=== PATIENT | female | born 1955 | race Caucasian/White ===

== ENCOUNTER → 2022-08-04 11:29 | Outpatient (BNVA) | payer MEDICARE, SELFPAY | PROVIDERS: PCP Nurse Practitioner Family; Visit Provider Student in an Organized Health Care Education/Training Program | DX: M05.79 Rheumatoid arthritis with rheumatoid factor of multiple sites without organ or systems involvement (principal) | CPT/HCPCS: 99202 ==

== ENCOUNTER 2022-08-25 11:48 | Outpatient (REF) | payer MEDICARE, SELFPAY | END 2022-08-25 11:49 | disposition home or self-care (01) | LOC: HO.MDS 11:48 | PROVIDERS: PCP Nurse Practitioner Family; Visit Provider Student in an Organized Health Care Education/Training Program | DX: M06.9 Rheumatoid arthritis, unspecified (principal) | CPT/HCPCS: 96365; J1602 ==

== ENCOUNTER 2022-10-25 14:31 | Outpatient (REF) | payer MEDICARE, SELFPAY | END 2022-10-25 14:32 | disposition home or self-care (01) | LOC: HO.MDS 14:31 | PROVIDERS: Visit Provider Student in an Organized Health Care Education/Training Program | DX: M06.9 Rheumatoid arthritis, unspecified (principal) | CPT/HCPCS: 96365; J1602 ==

== ENCOUNTER → 2022-11-30 10:16 | Outpatient (BNVA) | payer MEDICARE, SELFPAY | PROVIDERS: PCP Nurse Practitioner Family; Visit Provider Student in an Organized Health Care Education/Training Program | DX: M05.79 Rheumatoid arthritis with rheumatoid factor of multiple sites without organ or systems involvement (principal); R21 Rash and other nonspecific skin eruption | CPT/HCPCS: 99212 ==

== ENCOUNTER 2022-12-21 11:58 | Outpatient (REF) | payer MEDICARE, SELFPAY | END 2022-12-21 11:59 | disposition home or self-care (01) | LOC: HO.MDS 11:58 | PROVIDERS: Visit Provider Student in an Organized Health Care Education/Training Program | DX: M06.9 Rheumatoid arthritis, unspecified (principal) | CPT/HCPCS: 96365; J1602 ==

== ENCOUNTER 2023-02-15 12:04 | Outpatient (REF) | payer MEDICARE, SELFPAY | END 2023-02-15 12:05 | disposition home or self-care (01) | LOC: HO.MDS 12:04 | PROVIDERS: Visit Provider Student in an Organized Health Care Education/Training Program | DX: M06.9 Rheumatoid arthritis, unspecified (principal) | CPT/HCPCS: 96365; J1602 ==

== ENCOUNTER 2023-03-08 12:02 | Outpatient (AMB) | payer MEDICARE, SELFPAY ==
[2023-03-08 12:12] VITALS: BP 156/94; PULSE 109; RESP 16; TEMP 36; O2SAT 97; BMI 28.3
--- NOTE | 2023-03-08 12:12 | MHC.OFFVIS ---
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: No Allergies Penicillins Allergy (Intermediate, Verified 03/08/23 12:15) Rash atorvastatin Adverse Reaction (Intermediate, Verified 03/08/23 12:15) Muscle Pain Medication List - Last Reconciled 03/08/23 by Cha Lamas MD cholecalciferol (vitamin D3) 50 mcg PO DAILY golimumab (Simponi ARIA) 150 mg (12 mL) IV Q8W [id number]-ast [id number] mg 1 cap PO BID prednisone Take 3 tabs by mouth once daily with breakfast for 1 week then 2 tabs daily for 1 week then 1 tab daily for 1 week then stop triamcinolone acetonide 0.1% 1 appl topical BID HPI HPI Comments History of Present Illness Details 67-year-old female with seropositive RA returns for follow-up. She states that she feels a little worse overall. She continues on Simponi infusions every 8 weeks. She did not start the methotrexate as instructed last visit as she wanted to see how she would do with the infusions. States that she gets pain in her wrists, ankles. Occasionally her shoulders. Her next infusion is due in 1 month. 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 She only works 3 days a week but she is on her feet the majority of the day. Rash on back and abdomen resolved with triamcinolone cream. Initial history: 66-year-old female with past medical history of hypertension, dyslipidemia, depression who presents for evaluation of rheumatoid arthritis. She was diagnosed with seropositive RA (++RF ++CCP) by Dr. Morales in 2007. She has failed hydroxychloroquine, methotrexate, leflunomide, sulfasalazine. She was intermittently on steroids which seemed to work. She was on Humira since 2016 which worked very well however her insurance would not cover it so she was spacing out her injections to every 4 weeks instead of 2 weeks for about 1 year until she ran out. Patient saw curb builder Dr. West last year and was started on Simponi Aria Q 8 weeks about 6 months ago. She stated that Simponi Aria initially only works for 5-7 week. Her most recent infusion was June 29. She states however that this infusion seems to have worked well. She only has mild middle finger stiffness. Denies any swollen joints. She feels well today from an MSK stand point. Patient states she has had cough with chest congestion for a few years now. She occasionally has a productive cough with whitish phlegm. Denies any shortness of breath. She can walk on level ground for miles. She has 2 flights of stairs at home and she is able to do them with minimal shortness of breath. Denies any history of Raynaud's. No history of GERD [facility] Medical History Adjustment disorder with mixed emotional features Allergic rhinitis Benign essential hypertension Depression Mixed hyperlipidemia Obesity Ocular hypertension Rheumatoid arthritis Surgical History Hx of cataract extraction Family History Mother Glaucoma Pacemaker Sister Sjogrens syndrome Father Prostate cancer Social History Household Members: None Alcohol intake: current Alcohol intake frequency: holidays/special occasions only Patient Tobacco Use Status: Former Tobacco user Quit Date: 1996 Current occupational status: employed 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 Review of Systems [facility] [place] Reports arthralgias Skin/Breast Denies rash Physical Exam Vital Signs: Last Vital Signs Temp 96.8 F 03/08/23 12:12 Pulse 109 H 03/08/23 12:12 Resp 16 03/08/23 12:12 BP 156/94 H 03/08/23 12:12 Pulse Ox 97 03/08/23 12:12 Oxygen Delivery Method Room Air 03/08/23 12:12 BMI result Body Mass Index 28.3 Const General: cooperative, healthy appearing, comfortable and no acute distress Nutritional Appearance: average body habitus Orientation/consciousness: patient oriented x3 Limitations: no limitations HEENT Head: Yes normocephalic and Yes atraumatic Mouth: moist mucous membranes Resp Effort & Inspection: normal respiratory effort and able to speak in complete sentences Skin General skin exam: no rashes or lesions noted Neuro General: patient oriented x3 Extrem Other: Mild right wrist swelling and pain with full flexion and extension Left wrist pain with full flexion and extension Bilateral shoulder pain with passive range of motion Negative rotator cuff provocative maneuvers bilaterally Mild osteoarthritic changes of both hands Mild Dupuytren contracture of left hand Left ankle warmth without tenderness Negative MTP tenderness, negative MTP squeeze test Normal nailfold capillaroscopy Results Reviewed Results Reviewed: Labs from 05/2022 cbc nl esr 37 CMP nl crp nl Labs from 19/07 ssa/ssb -ve ccp +ve RF+ Assessment & Plan Assessment & Plan (1) Rheumatoid arthritis: Comment: ++RF++CCP diagnosed in 2007 Failed H CQ, MTX, SSZ, leflunomide Humira was working well from 2015 to 2020, stopped due to lack of insurance Simponi Aria started 2021, effective Code(s): M06.9 - Rheumatoid arthritis, unspecified Qualifiers: Rheumatoid arthritis location: multiple sites Rheumatoid factor presence: with rheumatoid factor Qualified Code(s): M05.79 - Rheumatoid arthritis with rheumatoid factor of multiple sites without organ or systems involvement Plan: This is a 67 year old female with seropositive RA (++RF++CCP) who presents for follow-up. On Simponi Aria infusions 2 mg/kg every 8 weeks. On exam today patient has few swollen and tender joints. ESR remains elevated. Will check anti Golimumab antibodies. If antibodies are positive will switch golimumab to another infusion. If negative will consider adding a Cs DMARD such as methotrexate. Prednisone taper for relief Labs before next visit in 3 months (2) Rash and nonspecific skin eruption: Code(s): R21 - Rash and other nonspecific skin eruption Plan: Unclear cause. Resolved with triamcinolone cream Plan I spent 26 minutes reviewing patient's chart, evaluating patient, ordering diagnostic workup, counseling patient and documenting in the chart Orders: Orders Comprehensive Met. Panel 3 Months M06.9 - Rheumatoid arthritis, unspecified C Reactive Protein 3 Months M06.9 - Rheumatoid arthritis, unspecified Complete Blood Count Auto Diff 3 Months M06.9 - Rheumatoid arthritis, unspecified Erythrocyte Sedimentation Rate 3 Months M06.9 - Rheumatoid arthritis, unspecified Other Ref Test [place] [facility] [place] Z51.81 - Encounter for therapeutic drug level monitoring, Z79.899 - Other long term care pharmacist (current) drug therapy Medications: New prednisone Take 3 tabs by mouth once daily with breakfast for 1 week then 2 tabs daily for 1 week then 1 tab daily for 1 week then stop 42 tabs 1RF Discontinued methotrexate sodium Discontinued Reason: Doctor's Order 10 mg (4 x 2.5 mg) PO QWEEK 36 tabs 0RF Coding Level of Care Code Est Pt Level 4 (65822) Diagnoses Rheumatoid arthritis M05.79 Rheumatoid arthritis location: multiple sites Rheumatoid factor presence: with rheumatoid factor Rash and nonspecific skin eruption R21
== END 2023-03-08 12:50 | disposition home or self-care (01) ==
PROVIDERS: PCP Nurse Practitioner Family; Visit Provider Student in an Organized Health Care Education/Training Program
DX: M05.79 Rheumatoid arthritis with rheumatoid factor of multiple sites without organ or systems involvement (principal); R21 Rash and other nonspecific skin eruption
CPT/HCPCS: 99214

== ENCOUNTER → 2023-03-08 12:02 | Outpatient (BNVA) | payer MEDICARE, SELFPAY | PROVIDERS: Visit Provider Student in an Organized Health Care Education/Training Program | DX: M05.79 Rheumatoid arthritis with rheumatoid factor of multiple sites without organ or systems involvement (principal); R21 Rash and other nonspecific skin eruption | CPT/HCPCS: 99212 ==

== ENCOUNTER 2023-04-12 12:00 | Outpatient (REF) | payer MEDICARE, SELFPAY | END 2023-04-12 12:01 | disposition home or self-care (01) | LOC: HO.MDS 12:00 | PROVIDERS: Visit Provider Student in an Organized Health Care Education/Training Program | DX: M06.9 Rheumatoid arthritis, unspecified (principal) | CPT/HCPCS: 96365; J1602 ==

== ENCOUNTER 2023-06-07 11:42 | Outpatient (AMB) | payer MEDICARE, SELFPAY ==
--- NOTE | 2023-06-07 11:46 | MHC.OFFVIS ---
Intake Vital Signs 06/07/23 11:47 Height 5 ft 3 in Weight 162 lb 11.218 oz BMI 28.8 BP 138/82 Blood Pressure Location Lt brachial Position Sitting Pulse 106 H Pulse Source Pulse Oximeter Temp 97 F Temp Source Skin Pulse Oximetry (%) 96 Oxygen Delivery Method Room Air Intake Visit Reasons: RA Intake Note: Pt last seen 03/08/23, presents today for follow up and test results. On simponi q8w and prednisone prn. Thread Separator Required: No Accompanied by: Self / Same As Patient Allergies Penicillins Allergy (Intermediate, Verified 06/07/23 11:47) Rash atorvastatin Adverse Reaction (Intermediate, Verified 06/07/23 11:47) Muscle Pain Medication List - Last Reconciled 06/07/23 by Cha Lamas MD cholecalciferol (vitamin D3) 50 mcg PO DAILY golimumab (Simponi ARIA) 150 mg (12 mL) IV Q8W [id number]-ast [id number] mg 1 cap PO BID HPI HPI Comments History of Present Illness Details 67-year-old female with seropositive RA returns for follow-up. Continues on Simponi Aria infusions every 8 weeks. She states that she has been doing well until last week when she had a flare up of her RA with right knee pain and stiffness, bilateral wrist and elbow pain and stiffness. Otherwise she was feeling fine. She is complaining of generalized fatigue. It does not coincide with her RA flare-ups. Initial history: 66-year-old female with past medical history of hypertension, dyslipidemia, depression who presents for evaluation of rheumatoid arthritis. She was diagnosed with seropositive RA (++RF ++CCP) by Dr. Morales in 2007. She has failed hydroxychloroquine, methotrexate, leflunomide, sulfasalazine. She was intermittently on steroids which seemed to work. She was on Humira since 2016 which worked very well however her insurance would not cover it so she was spacing out her injections to every 4 weeks instead of 2 weeks for about 1 year until she ran out. Patient saw mva reactor operator Dr. West last year and was started on Simponi Aria Q 8 weeks about 6 months ago. She stated that Simponi Aria initially only works for 5-7 week. Her most recent infusion was June 29. She states however that this infusion seems to have worked well. She only has mild middle finger stiffness. Denies any swollen joints. She feels well today from an MSK stand point. Patient states she has had cough with chest congestion for a few years now. She occasionally has a productive cough with whitish phlegm. Denies any shortness of breath. She can walk on level ground for miles. She has 2 flights of stairs at home and she is able to do them with minimal shortness of breath. Denies any history of Raynaud's. No history of GERD [facility] Medical History Adjustment disorder with mixed emotional features Obesity Rheumatoid arthritis Allergic rhinitis Benign essential hypertension Ocular hypertension Depression Mixed hyperlipidemia Surgical History Hx of cataract extraction Family History Mother Glaucoma Pacemaker Sister Sjogrens syndrome Father Prostate cancer Social History Household Members: None Alcohol intake: current Alcohol intake frequency: holidays/special occasions only Patient Tobacco Use Status: Former Tobacco user Quit Date: 1996 Current occupational status: employed 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 Review of Systems Const Reports fatigue Musc Reports arthralgias and Reports stiffness Skin/Breast Denies rash Endo Reports fatigue Physical Exam Vital Signs: Last Vital Signs Temp 97 F 06/07/23 11:47 Pulse 106 H 06/07/23 11:47 BP 138/82 06/07/23 11:47 Pulse Ox 96 06/07/23 11:47 Oxygen Delivery Method Room Air 06/07/23 11:47 BMI result Body Mass Index 28.8 Const General: cooperative, healthy appearing, comfortable and no acute distress Nutritional Appearance: average body habitus Orientation/consciousness: patient oriented x3 Limitations: no limitations HEENT Head: Yes normocephalic and Yes atraumatic Mouth: moist mucous membranes Resp Effort & Inspection: normal respiratory effort and able to speak in complete sentences Skin General skin exam: no rashes or lesions noted Neuro General: patient oriented x3 Extrem Other: Mild right elbow tenderness to palpation without warmth or swelling Normal range of motion of both hands, wrists without tenderness Negative MCP squeeze test bilaterally Negative rotator cuff provocative maneuvers bilaterally Mild osteoarthritic changes of both hands Mild Dupuytren contracture of left hand Right knee pain with full flexion No ankle swelling or tenderness bilaterally Negative MTP tenderness, negative MTP squeeze test Normal nailfold capillaroscopy Results Reviewed Results Reviewed: Labs from 05/2022 cbc nl esr 37 CMP nl crp nl Labs from 19/07 ssa/ssb -ve Assessment & Plan Assessment & Plan (1) Rheumatoid arthritis: Comment: ++RF++CCP diagnosed in 2007 Failed H CQ, MTX, SSZ, leflunomide Humira was working well from 2015 to 2020, stopped due to lack of insurance Simponi Aria started 2021, effective Code(s): M06.9 - Rheumatoid arthritis, unspecified Qualifiers: Rheumatoid arthritis location: multiple sites Rheumatoid factor presence: with rheumatoid factor Qualified Code(s): M05.79 - Rheumatoid arthritis with rheumatoid factor of multiple sites without organ or systems involvement Plan: This is a 67 year old female with seropositive RA (++RF++CCP) who presents for follow-up. On Simponi Aria infusions 2 mg/kg every 8 weeks. Patient does very well on Simponi Aria for about 7 weeks. She started having a flare-up a week ago. Inflammatory markers are elevated. On exam however she has 2 tender joints. She still remains relatively well controlled. Her anti adalimumab antibodies are negative Patient does not want to change her treatment Continue with Simponi Aria 2 mg/kg every 8 weeks Can use prednisone as needed for flare-ups Labs before next visit in 3 months (2) Immunization counseling: Code(s): Z71.85 - Encounter for immunization safety counseling Plan: Patient is up-to-date on her flu vaccine and COVID boosters (3) Fatigue: Code(s): R53.83 - Other fatigue Qualifiers: Fatigue type: chronic, unspecified Qualified Code(s): R53.82 - Chronic fatigue, unspecified Plan: Symptoms of fatigue are not associated with her RA flare-ups. I explained to patient that there are multiple causes of fatigue and she should discuss with her PCP Plan I spent 26 minutes reviewing patient's chart, evaluating patient, ordering diagnostic workup, counseling patient and documenting in the chart Orders: Orders C Reactive Protein 3 Months Z51.81 - Encounter for therapeutic drug level monitoring, Z79.899 - Other correction (current) drug therapy Complete Blood Count Auto Diff 3 Months Z51.81 - Encounter for therapeutic drug level monitoring, Z79.899 - Other control systems drafting officer (current) drug therapy Comprehensive Met. Panel 3 Months Z51.81 - Encounter for therapeutic drug level monitoring, Z79.899 - Other control systems drafting officer (current) drug therapy Erythrocyte Sedimentation Rate 3 Months Z51.81 - Encounter for therapeutic drug level monitoring, Z79.899 - Other correction (current) drug therapy Medications: Refilled prednisone Take 3 tabs by mouth once daily with breakfast for 1 week then 2 tabs daily for 1 week then 1 tab daily for 1 week then stop 42 tabs 1RF Coding Level of Care Code Est Pt Level 4 (68663) Diagnoses Rheumatoid arthritis involving multiple sites with positive rheumatoid factor M05.79 Rheumatoid arthritis location: multiple sites Rheumatoid factor presence: with rheumatoid factor Immunization counseling Z71.85 Chronic fatigue R53.82 Fatigue type: chronic, unspecified
[2023-06-07 11:47] VITALS: BP 138/82; PULSE 106; TEMP 36.1; O2SAT 96; BMI 28.8
== END 2023-06-07 12:06 | disposition home or self-care (01) ==
PROVIDERS: PCP Nurse Practitioner Family; Visit Provider Student in an Organized Health Care Education/Training Program
DX: M05.79 Rheumatoid arthritis with rheumatoid factor of multiple sites without organ or systems involvement (principal); Z71.85 Encounter for immunization safety counseling; R53.82 Chronic fatigue, unspecified
CPT/HCPCS: 99214

== ENCOUNTER 2023-06-07 12:18 | Outpatient (REF) | payer MEDICARE, SELFPAY | END 2023-06-07 12:19 | disposition home or self-care (01) | LOC: HO.MDS 12:18 | PROVIDERS: Visit Provider Student in an Organized Health Care Education/Training Program | DX: M05.79 Rheumatoid arthritis with rheumatoid factor of multiple sites without organ or systems involvement (principal); R53.83 Other fatigue; Z71.85 Encounter for immunization safety counseling | CPT/HCPCS: 96365; 99212; J1602 ==

== ENCOUNTER 2023-08-02 12:31 | Outpatient (REF) | payer MEDICARE, SELFPAY | END 2023-08-02 12:32 | disposition home or self-care (01) | LOC: HO.MDS 12:31 | PROVIDERS: Visit Provider Student in an Organized Health Care Education/Training Program | DX: M05.9 Rheumatoid arthritis with rheumatoid factor, unspecified (principal) ==

== ENCOUNTER 2023-08-23 12:55 | Outpatient (REF) | payer MEDICARE, SELFPAY | END 2023-08-23 12:56 | disposition home or self-care (01) | LOC: HO.MDS 12:55 | PROVIDERS: Visit Provider Student in an Organized Health Care Education/Training Program | DX: M06.9 Rheumatoid arthritis, unspecified (principal) | CPT/HCPCS: 96365; J1602 ==

== ENCOUNTER 2023-09-20 11:29 | Outpatient (AMB) | payer MEDICARE, SELFPAY ==
--- NOTE | 2023-09-20 11:32 | A.OFFVIS_ITS ---
Intake Vital Signs 09/20/23 11:34 Height 5 ft 3 in Weight 164 lb 0.383 oz BMI 29.1 BP 128/66 Blood Pressure Location Rt brachial Position Sitting Pulse 98 Pulse Source Pulse Oximeter Temp 96.6 F L Temp Source Skin Pulse Oximetry (%) 97 Oxygen Delivery Method Room Air Intake Visit Reasons: RA Intake Note: Pt last seen 06/07/23 presents today for follow up and test results. Grease Monkey Required: No Accompanied by: Self / Same As Patient Allergies Penicillins Allergy (Intermediate, Verified 09/20/23 11:36) Rash atorvastatin Adverse Reaction (Intermediate, Verified 09/20/23 11:36) Muscle Pain Medication List - Last Reconciled 09/20/23 by Cha Lamas MD cholecalciferol (vitamin D3) 50 mcg PO DAILY golimumab (Simponi ARIA) 150 mg (12 mL) IV Q8W [id number]-[id number]-[id number]-ast [id number] mg 1 cap PO BID prednisone orally Take 3 tabs by mouth once daily with breakfast for 1 week then 2 tabs daily for 1 week then 1 tab daily for 1 week then stop PRN; HPI HPI Comments History of Present Illness Details 67-year-old female with seropositive RA returns for follow-up. Continues on Simponi Aria infusions every 8 weeks. Patient is doing fairly well overall. She had a couple of flare-ups over the last 2 months treated with prednisone starting at 40 mg and tapered over 7-10 days. Today she is doing well with no swollen or painful joints Initial history: 66-year-old female with past medical history of hypertension, dyslipidemia, depression who presents for evaluation of rheumatoid arthritis. She was diagnosed with seropositive RA (++RF ++CCP) by Dr. Morales in 2007. She has failed hydroxychloroquine, methotrexate, leflunomide, sulfasalazine. She was intermittently on steroids which seemed to work. She was on Humira since 2016 which worked very well however her insurance would not cover it so she was spacing out her injections to every 4 weeks instead of 2 weeks for about 1 year until she ran out. Patient saw hatchery helper Dr. West last year and was started on Simponi Aria Q 8 weeks about 6 months ago. She stated that Simponi Aria initially only works for 5-7 week. Her most recent infusion was June 29. She states however that this infusion seems to have worked well. She only has mild middle finger stiffness. Denies any swollen joints. She feels well today from an MSK stand point. Patient states she has had cough with chest congestion for a few years now. She occasionally has a productive cough with whitish phlegm. Denies any shortness of breath. She can walk on level ground for miles. She has 2 flights of stairs at home and she is able to do them with minimal shortness of breath. Denies any history of Raynaud's. No history of GERD [facility] Medical History Adjustment disorder with mixed emotional features Obesity Rheumatoid arthritis Allergic rhinitis Benign essential hypertension Ocular hypertension Depression Mixed hyperlipidemia Surgical History Hx of cataract extraction Family History Mother Glaucoma Pacemaker Sister Sjogrens syndrome Father Prostate cancer Social History Household Members: None Alcohol intake: current Alcohol intake frequency: holidays/special occasions only Patient Tobacco Use Status: Former Tobacco user Quit Date: 1996 Current occupational status: employed 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 Review of Systems Musc Denies arthralgias, Denies joint swelling and Denies stiffness Physical Exam Vital Signs: Last Vital Signs Temp 96.6 F L 09/20/23 11:34 Pulse 98 09/20/23 11:34 BP 128/66 09/20/23 11:34 Pulse Ox 97 09/20/23 11:34 Oxygen Delivery Method Room Air 09/20/23 11:34 BMI result Body Mass Index 29.1 Const General: cooperative, healthy appearing, comfortable and no acute distress Nutritional Appearance: average body habitus Orientation/consciousness: patient oriented x3 Limitations: no limitations HEENT Head: Yes normocephalic and Yes atraumatic Mouth: moist mucous membranes Resp Effort & Inspection: normal respiratory effort and able to speak in complete sentences Skin General skin exam: no rashes or lesions noted Neuro General: patient oriented x3 Extrem Other: No active synovitis today Normal range of motion of both hands, wrists without tenderness Negative MCP squeeze test bilaterally Negative rotator cuff provocative maneuvers bilaterally Mild osteoarthritic changes of both hands Mild Dupuytren contracture of left hand No ankle swelling or tenderness bilaterally Negative MTP tenderness, negative MTP squeeze test Normal nailfold capillaroscopy Results Reviewed Results Reviewed: Labs from 05/2022 cbc nl esr 37 CMP nl crp nl Labs from 19/07 ssa/ssb -ve Assessment & Plan Assessment & Plan (1) Rheumatoid arthritis: Comment: ++RF++CCP diagnosed in 2007 Failed H CQ, MTX, SSZ, leflunomide Humira was working well from 2015 to 2020, stopped due to lack of insurance Simponi Aria started 2021, effective Code(s): M06.9 - Rheumatoid arthritis, unspecified Qualifiers: Rheumatoid arthritis location: multiple sites Rheumatoid factor presence: with rheumatoid factor Qualified Code(s): M05.79 - Rheumatoid arthritis with rheumatoid factor of multiple sites without organ or systems involvement Plan: This is a 67 year old female with seropositive RA (++RF++CCP) who presents for follow-up. On Simponi Aria infusions 2 mg/kg every 8 weeks. Continues to do fairly well overall. Continues to get 1 or 2 flares over a 3 month period that respond to prednisone taper starting at 40 mg and tapered over 7-10 days. Advised patient to start prednisone taper at 20 mg and taper it over 5-7 days. Discussed with patient that her RA might be better controlled if a CsDMARD is added. Patient is not interested at this point. Continue with Simponi Aria 2 mg/kg every 8 weeks Can use prednisone as needed for flare-ups Labs before next visit in 4 months (2) Immunization counseling: Code(s): Z71.85 - Encounter for immunization safety counseling Plan: Patient is up-to-date on her flu vaccine and COVID boosters Plan I spent 26 minutes reviewing patient's chart, evaluating patient, ordering diagnostic workup, counseling patient and documenting in the chart Orders: Orders Comprehensive Met. Panel 4 Months M06.9 - Rheumatoid arthritis, unspecified C Reactive Protein 4 Months M06.9 - Rheumatoid arthritis, unspecified T Spot TB 4 Months Z11.7 - Encounter for testing for latent tuberculosis infection Complete Blood Count Auto Diff 4 Months M06.9 - Rheumatoid arthritis, unspecified Erythrocyte Sedimentation Rate 4 Months M06.9 - Rheumatoid arthritis, unspecified Hepatitis A,B,C Profile 4 Months Z11.59 - Encounter for screening for other viral diseases Coding Level of Care Code Est Pt Level 4 (22764) Diagnoses Rheumatoid arthritis involving multiple sites with positive rheumatoid factor M05.79 Rheumatoid arthritis location: multiple sites Rheumatoid factor presence: with rheumatoid factor Immunization counseling Z71.85
[2023-09-20 11:34] VITALS: BP 128/66; PULSE 98; TEMP 35.9; O2SAT 97; BMI 29.1
== END 2023-09-20 11:56 | disposition home or self-care (01) ==
PROVIDERS: PCP Nurse Practitioner Family; Visit Provider Student in an Organized Health Care Education/Training Program
DX: M05.79 Rheumatoid arthritis with rheumatoid factor of multiple sites without organ or systems involvement (principal); Z71.85 Encounter for immunization safety counseling
CPT/HCPCS: 99214

== ENCOUNTER → 2023-09-20 11:29 | Outpatient (BNVA) | payer MEDICARE, SELFPAY | PROVIDERS: PCP Nurse Practitioner Family; Visit Provider Student in an Organized Health Care Education/Training Program | DX: M05.79 Rheumatoid arthritis with rheumatoid factor of multiple sites without organ or systems involvement (principal); Z71.85 Encounter for immunization safety counseling | CPT/HCPCS: 99212 ==

== ENCOUNTER 2023-10-18 13:01 | Outpatient (REF) | payer MEDICARE, SELFPAY ==
[2023-10-18 13:06] VITALS: BP 151/84; PULSE 82; RESP 18; TEMP 35.8
[2023-10-18] MEDS: SODIUM CHLORIDE 0.9% IV (13:51)
[2023-10-18] MEDS: GOLIMUMAB IV (13:51)
== END 2023-10-18 13:02 | disposition home or self-care (01) ==
LOC: HO.MDS 13:01
PROVIDERS: Visit Provider Student in an Organized Health Care Education/Training Program
DX: M06.9 Rheumatoid arthritis, unspecified (principal)
CPT/HCPCS: 96365; J1602

== ENCOUNTER 2024-02-14 12:37 | Outpatient (AMB) | payer MEDICARE, SELFPAY ==
--- NOTE | 2024-02-14 12:39 | MHC.OFFVIS ---
Vital Signs 02/14/24 12:45 Height 5 ft 3 in Weight 164 lb 10.965 oz BMI 29.2 BP 142/80 H Blood Pressure Location Rt brachial Position Sitting Respiration 16 Pulse 91 Pulse Source Pulse Oximeter Pulse Oximetry (%) 97 Oxygen Delivery Method Room Air Intake Visit Reasons: RA/CM Intake Note: Patient presents for RA. Allergies Penicillins Allergy (Intermediate, Verified 02/14/24 12:43) Rash Medication List - Last Reconciled 02/14/24 by Cha Lamas MD cholecalciferol (vitamin D3) 50 mcg PO DAILY golimumab (Simponi ARIA) 150 mg (12 mL) IV Q8W [id number] mg 1 cap PO BID HPI Comments Details: 68-year-old female with seropositive RA returns for follow-up. Continues on Simponi Aria infusions every 8 weeks. Patient states that she is doing about the same overall. She states that the Simponi Aria infusion works relatively well for 4-6 weeks then she starts having flare-ups joint pain and stiffness. She received her Simponi Aria infusion today. For the last week she has had significant morning stiffness, significant difficulty getting out of bed. Ongoing joint pains. Has not had any fevers. Initial history: 66-year-old female with past medical history of hypertension, dyslipidemia, depression who presents for evaluation of rheumatoid arthritis. She was diagnosed with seropositive RA (++RF ++CCP) by Dr. Morales in 2007. She has failed hydroxychloroquine, methotrexate, leflunomide, sulfasalazine. She was intermittently on steroids which seemed to work. She was on Humira since 2016 which worked very well however her insurance would not cover it so she was spacing out her injections to every 4 weeks instead of 2 weeks for about 1 year until she ran out. Patient saw screw machine operator single spindle Dr. West last year and was started on Simponi Aria Q 8 weeks about 6 months ago. She stated that Simponi Aria initially only works for 5-7 week. Her most recent infusion was June 29. She states however that this infusion seems to have worked well. She only has mild middle finger stiffness. Denies any swollen joints. She feels well today from an MSK stand point. Patient states she has had cough with chest congestion for a few years now. She occasionally has a productive cough with whitish phlegm. Denies any shortness of breath. She can walk on level ground for miles. She has 2 flights of stairs at home and she is able to do them with minimal shortness of breath. Denies any history of Raynaud's. No history of GERD [facility] Medical History Adjustment disorder with mixed emotional features Obesity Rheumatoid arthritis Allergic rhinitis Benign essential hypertension Ocular hypertension Depression Mixed hyperlipidemia Surgical History Hx of cataract extraction Family History Mother Glaucoma Pacemaker Sister Sjogrens syndrome Father Prostate cancer Social History Household Members: None Alcohol intake: current Alcohol intake frequency: holidays/special occasions only Patient Tobacco Use Status: Former Tobacco user Current occupational status: employed 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 Reproductive History Menstrual Total pregnancies: 1 Number of Living Children: 1 Review of Systems [facility] Reports arthralgias, Denies joint swelling and Reports stiffness Physical Exam Vital Signs: Last Vital Signs Pulse 91 02/14/24 12:45 Resp 16 02/14/24 12:45 BP 142/80 H 02/14/24 12:45 Pulse Ox 97 02/14/24 12:45 Oxygen Delivery Method Room Air 02/14/24 12:45 BMI result Body Mass Index 29.2 Const General: cooperative, healthy appearing, comfortable and no acute distress Nutritional Appearance: average body habitus Orientation/consciousness: patient oriented x3 Limitations: no limitations HEENT Head: Yes normocephalic and Yes atraumatic Mouth: moist mucous membranes Resp Effort & Inspection: normal respiratory effort and able to speak in complete sentences Skin General skin exam: no rashes or lesions noted Neuro General: patient oriented x3 Extrem Other: No active synovitis today Normal range of motion of both hands, wrists without tenderness Negative MCP squeeze test bilaterally Negative rotator cuff provocative maneuvers bilaterally Mild osteoarthritic changes of both hands Mild Dupuytren contracture of left hand No ankle swelling or tenderness bilaterally Negative MTP tenderness, negative MTP squeeze test Normal nailfold capillaroscopy Results Reviewed Results Reviewed: Labs from 05/2022 cbc nl esr 37 CMP nl crp nl Labs from 19/07 ssa/ssb -ve Assessment & Plan Assessment & Plan (1) Rheumatoid arthritis: Comment: ++RF++CCP diagnosed in 2007 Failed H CQ, MTX, SSZ, leflunomide Humira was working well from 2015 to 2020, stopped due to lack of insurance Simponi Aria started 2021, effective Code(s): M06.9 - Rheumatoid arthritis, unspecified Category: Medical Qualifiers: Rheumatoid arthritis location: multiple sites Rheumatoid factor presence: with rheumatoid factor Qualified Code(s): M05.79 - Rheumatoid arthritis with rheumatoid factor of multiple sites without organ or systems involvement Plan: This is a 68 year old female with seropositive RA (++RF++CCP) who presents for follow-up. On Simponi Aria infusions 2 mg/kg every 8 weeks. I think patient has incomplete response to Simponi. Simponi infusion generally works well for 4-6 weeks then she starts having flare-ups. For the last week she had significant morning stiffness, inability to get out of bed. ESR has been persistently elevated. Discussed with patient that it it would be better over the terminal worker if we can optimize her treatment, switching to Actemra infusions might be a reasonable option. Patient however is hesitant as she is doing reasonably well overall She is also retiring and switching jobs. At this time, she does not want to rock the boat Continue with Simponi Aria infusions Labs before next visit in 4 months (2) Encounter for monitoring golimumab therapy: Code(s): Z51.81 - Encounter for therapeutic drug level monitoring; Z79.899 - Other fci (current) drug therapy Category: Medical Plan: Side effects of Simponi were discussed with the patient in detail including increased risk of infection, demyelinating disease, reactivation of latent TB, possible increased risk of solid and skin tumors. Patient fully aware. Advised patient to seek medical care SCAR if patient has an infection and advised patient to stop the medication until the infection is resolved. Plan I spent 26 minutes reviewing patient's chart, evaluating patient, ordering diagnostic workup, counseling patient and documenting in the chart Coding Level of Care Code Est Pt Level 4 (45959) Diagnoses Rheumatoid arthritis involving multiple sites with positive rheumatoid factor M05.79 Rheumatoid arthritis location: multiple sites Rheumatoid factor presence: with rheumatoid factor Encounter for monitoring golimumab therapy Z51.81; Z79.89
[2024-02-14 12:45] VITALS: BP 142/80; PULSE 91; RESP 16; O2SAT 97; BMI 29.2
== END 2024-02-14 13:17 | disposition home or self-care (01) ==
PROVIDERS: PCP Nurse Practitioner Family; Visit Provider Student in an Organized Health Care Education/Training Program
DX: M05.79 Rheumatoid arthritis with rheumatoid factor of multiple sites without organ or systems involvement (principal); Z51.81 Encounter for therapeutic drug level monitoring; Z79.899 Other long term (current) drug therapy
CPT/HCPCS: 99214

== ENCOUNTER → 2024-02-14 12:37 | Outpatient (BNVA) | payer MEDICARE, SELFPAY | PROVIDERS: PCP Nurse Practitioner Family; Visit Provider Student in an Organized Health Care Education/Training Program | DX: M05.79 Rheumatoid arthritis with rheumatoid factor of multiple sites without organ or systems involvement (principal); Z79.899 Other long term (current) drug therapy | CPT/HCPCS: 99212 ==

== ENCOUNTER 2024-06-19 13:47 | Outpatient (AMB) | payer MEDICARE, SELFPAY ==
--- NOTE | 2024-06-19 13:56 | MHC.OFFVIS ---
Vital Signs 06/19/24 14:00 Height 5 ft 3 in Weight 163 lb 2.273 oz BMI 28.9 BP 150/84 H Blood Pressure Location Lt brachial Position Sitting Pulse 85 Pulse Source Pulse Oximeter Pulse Oximetry (%) 98 Oxygen Delivery Method Room Air Intake Visit Reasons: RA/CM APT Intake Note: Patient presents for RA. Allergies Penicillins Allergy (Intermediate, Verified 06/19/24 14:00) Rash Medication List - Last Reconciled 06/19/24 by Cha Lamas MD cholecalciferol (vitamin D3) 50 mcg PO DAILY [id number] mg 1 cap PO BID HPI Comments Details: 68-year-old female with seropositive RA returns for follow-up. Continues on Simponi Aria infusions every 8 weeks. She states that she has not been doing well. Continues to have intermittent joint pains and swelling. Today she is having left wrist pain and swelling. She continues to have joint pains affecting different joints on different days such as her ankles, knees, toes. She is having triggering of her right index and left 3rd fingers. Has been using a finger splint at night. It helps some. She was evaluated by hand surgeon 2 months ago and patient refused surgery and injections Initial history: 66-year-old female with past medical history of hypertension, dyslipidemia, depression who presents for evaluation of rheumatoid arthritis. She was diagnosed with seropositive RA (++RF ++CCP) by Dr. Morales in 2007. She has failed hydroxychloroquine, methotrexate, leflunomide, sulfasalazine. She was intermittently on steroids which seemed to work. She was on Humira since 2016 which worked very well however her insurance would not cover it so she was spacing out her injections to every 4 weeks instead of 2 weeks for about 1 year until she ran out. Patient saw maintenance machine repairer Dr. West last year and was started on Simponi Aria Q 8 weeks about 6 months ago. She stated that Simponi Aria initially only works for 5-7 week. Her most recent infusion was June 29. She states however that this infusion seems to have worked well. She only has mild middle finger stiffness. Denies any swollen joints. She feels well today from an MSK stand point. Patient states she has had cough with chest congestion for a few years now. She occasionally has a productive cough with whitish phlegm. Denies any shortness of breath. She can walk on level ground for miles. She has 2 flights of stairs at home and she is able to do them with minimal shortness of breath. Denies any history of Raynaud's. No history of GERD [facility] Medical History Adjustment disorder with mixed emotional features Obesity Rheumatoid arthritis Allergic rhinitis Benign essential hypertension Ocular hypertension Depression Mixed hyperlipidemia Surgical History Hx of cataract extraction Family History Mother Glaucoma Pacemaker Sister Sjogrens syndrome Father Prostate cancer Social History Household Members: None Alcohol intake: current Alcohol intake frequency: holidays/special occasions only Patient Tobacco Use Status: Former Tobacco user Current occupational status: employed 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 Reproductive History Menstrual Total pregnancies: 1 Number of Living Children: 1 Review of Systems [facility] Reports arthralgias, Denies joint swelling, Reports limited range of motion and Reports stiffness Physical Exam Vital Signs: Last Vital Signs Pulse 85 06/19/24 14:00 BP 150/84 H 06/19/24 14:00 Pulse Ox 98 06/19/24 14:00 Oxygen Delivery Method Room Air 06/19/24 14:00 BMI result Body Mass Index 28.9 Const General: cooperative, healthy appearing, comfortable and no acute distress Nutritional Appearance: average body habitus Orientation/consciousness: patient oriented x3 Limitations: no limitations HEENT Head: Yes normocephalic and Yes atraumatic Mouth: moist mucous membranes Resp Effort & Inspection: normal respiratory effort and able to speak in complete sentences Skin General skin exam: no rashes or lesions noted Neuro General: patient oriented x3 Extrem Other: Left wrist swelling tenderness and pain with full flexion Negative Augustus's test on the left Significant osteoarthritic changes of both hands Triggering of left 3rd finger Triggering of right 2nd finger Multiple tender MTPs bilaterally Normal nailfold capillaroscopy Assessment & Plan Assessment & Plan (1) Rheumatoid arthritis: Comment: ++RF++CCP diagnosed in 2007 Failed H CQ, MTX, SSZ, leflunomide Humira was working well from 2015 to 2020, stopped due to lack of insurance Simponi Aria started 2021, partially effective Code(s): M06.9 - Rheumatoid arthritis, unspecified Category: Medical Qualifiers: Rheumatoid arthritis location: multiple sites Rheumatoid factor presence: with rheumatoid factor Qualified Code(s): M05.79 - Rheumatoid arthritis with rheumatoid factor of multiple sites without organ or systems involvement Plan: This is a 68 year old female with seropositive RA (++RF++CCP) who presents for follow-up. On Simponi Aria infusions 2 mg/kg every 8 weeks. Patient continues to have intermittent flare-ups of joint pain, swelling and stiffness. Laboratory markers remain elevated. We will need to change DMARDs. Discussed risks and benefits of Actemra infusion. Patient agreed to proceed. Will start prior authorization for Actemra. DC Simponi. Labs before next visit in 3 months (2) Trigger finger: Code(s): M65.30 - Trigger finger, unspecified finger Category: Medical Qualifiers: Trigger finger location: unspecified finger Plan: Affecting right 2nd and left 3rd fingers. Patient was evaluated by hand surgeon. Advised patient to return to hand surgery, consider an injection Wear finger splints nightly (3) High risk medication use: Code(s): Z79.899 - Other shelter (current) drug therapy Category: Medical Plan: Side effects of Actemra were discussed with the patient in detail including increased risk of infection, diverticulitis, , reactivation of latent TB, possible increased risk of solid and skin tumors. Patient fully aware. Advised patient to seek medical care SCAR if patient has an infection and advised patient to stop the medication until the infection is resolved. Plan I spent 26 minutes reviewing patient's chart, evaluating patient, ordering diagnostic workup, counseling patient and documenting in the chart Orders: Orders Complete Blood Count Auto Diff 3 Months M05.79 - Rheumatoid arthritis with rheumatoid factor of multiple sites without organ or systems involvement, Z79.899 - Other shelter (current) drug therapy Comprehensive Met. Panel 3 Months M05.79 - Rheumatoid arthritis with rheumatoid factor of multiple sites without organ or systems involvement, Z79.899 - Other rat exterminator (current) drug therapy C Reactive Protein 3 Months M05.79 - Rheumatoid arthritis with rheumatoid factor of multiple sites without organ or systems involvement, Z79.899 - Other rat exterminator (current) drug therapy Erythrocyte Sedimentation Rate 3 Months M05.79 - Rheumatoid arthritis with rheumatoid factor of multiple sites without organ or systems involvement, Z79.899 - Other shelter (current) drug therapy Coding Level of Care Code Est Pt Level 4 (48757) Complex EM visit Add On G2211 Diagnoses Rheumatoid arthritis involving multiple sites with positive rheumatoid factor M05.79 Rheumatoid arthritis location: multiple sites Rheumatoid factor presence: with rheumatoid factor Trigger finger M65.30 Trigger finger location: unspecified finger High risk medication use Z79.899
[2024-06-19 14:00] VITALS: BP 150/84; PULSE 85; O2SAT 98; BMI 28.9
== END 2024-06-19 14:20 | disposition home or self-care (01) ==
PROVIDERS: PCP Nurse Practitioner Family; Visit Provider Student in an Organized Health Care Education/Training Program
DX: M05.79 Rheumatoid arthritis with rheumatoid factor of multiple sites without organ or systems involvement (principal); M65.30 Trigger finger, unspecified finger; Z79.899 Other long term (current) drug therapy
CPT/HCPCS: 99214; G2211

== ENCOUNTER → 2024-06-19 13:47 | Outpatient (BNVA) | payer MEDICARE, SELFPAY | PROVIDERS: PCP Nurse Practitioner Family; Visit Provider Student in an Organized Health Care Education/Training Program | DX: M05.79 Rheumatoid arthritis with rheumatoid factor of multiple sites without organ or systems involvement (principal); M65.332 Trigger finger, left middle finger; M65.321 Trigger finger, right index finger; Z79.899 Other long term (current) drug therapy | CPT/HCPCS: 99212 ==

== ENCOUNTER → 2024-09-06 09:32 | Outpatient (BNVA) | payer MEDICARE, SELFPAY | PROVIDERS: PCP Physician Assistant; Visit Provider Student in an Organized Health Care Education/Training Program | DX: M06.9 Rheumatoid arthritis, unspecified (principal); Z51.81 Encounter for therapeutic drug level monitoring; Z79.620 Long term (current) use of immunosuppressive biologic | CPT/HCPCS: 99212 ==

== ENCOUNTER 2024-11-27 11:33 | Outpatient (AMB) | payer MEDICARE, SELFPAY ==
--- NOTE | 2024-11-27 11:35 | MHC.OFFVIS ---
Vital Signs 11/27/24 11:38 Height 5 ft 3 in Weight 161 lb 13.109 oz BMI 28.7 BP 160/94 H Blood Pressure Location Rt brachial Position Sitting Pulse 96 Pulse Source Pulse Oximeter Pulse Oximetry (%) 98 Oxygen Delivery Method Room Air Intake Visit Reasons: RA Intake Note: Patient presents for RA follow up. Allergies Penicillins Allergy (Intermediate, Verified 11/27/24 11:38) Rash Medication List - Last Reconciled 11/27/24 by Eve Redmond MD cholecalciferol (vitamin D3) 50 mcg PO DAILY methylprednisolone (Medrol (David)) PO PER PKG DIR for 6 days tocilizumab (Actemra) 8mg/kg intravenously every 4 weeks; administer as a 1 hr infusion HPI Comments Details: Patient is a 68-year-old female with seropositive rheumatoid arthritis here today for follow up Interval History: Patient last seen 08/2024 with me. At that visit she was on Actemra 4 milligrams/kilogram with limited response and evidence of synovitis on examination. Her Actemra was increased to 8 mg every 4 weeks and she was given a Medrol Dosepak has rescue Since that visit she has had improvement in her symptoms Currently complaining of right shoulder pain Rheumatologic History: 66-year-old female with past medical history of hypertension, dyslipidemia, depression who presents for evaluation of rheumatoid arthritis. She was diagnosed with seropositive RA (++RF ++CCP) by Dr. Morales in 2007. She has failed hydroxychloroquine, methotrexate, leflunomide, sulfasalazine. She was intermittently on steroids which seemed to work. She was on Humira since 2016 which worked very well however her insurance would not cover it so she was spacing out her injections to every 4 weeks instead of 2 weeks for about 1 year until she ran out. Patient saw hand lacer Dr. West last year and was started on Simponi Aria Q 8 weeks about 6 months ago. She stated that Simponi Aria initially only works for 5-7 week. Her most recent infusion was June 29. She states however that this infusion seems to have worked well. She only has mild middle finger stiffness. Denies any swollen joints. She feels well today from an MSK stand point. Patient states she has had cough with chest congestion for a few years now. She occasionally has a productive cough with whitish phlegm. Denies any shortness of breath. She can walk on level ground for miles. She has 2 flights of stairs at home and she is able to do them with minimal shortness of breath. Denies any history of Raynaud's. No history of GERD Current Rheumatology Medication(s): Actemra 8mg/kg every 4 weeks IV PFS Medical History (Updated 09/06/24 @ 11:01 by Eve Redmond MD) Encounter for monitoring tocilizumab therapy Adjustment disorder with mixed emotional features Obesity Rheumatoid arthritis Allergic rhinitis Benign essential hypertension Ocular hypertension Depression Mixed hyperlipidemia Surgical History Hx of cataract extraction Family History Mother Glaucoma Pacemaker Sister Sjogrens syndrome Father Prostate cancer Social History Household Members: None Alcohol intake: current Alcohol intake frequency: holidays/special occasions only Patient Tobacco Use Status: Former Tobacco user Current occupational status: employed 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 Review of Systems Const Details: Review of Systems Constitutional: Denies fever, chills, weight loss ENT: Denies vision changes, eye pain or eye redness, dental caries, dry mouth GI: Denies nausea, vomiting, diarrhea, abdominal pain, change in BM Pulm: Denies SOB, LOPEZ, hemoptysis, wheezing Cards: Denies chest pain, palpitations Skin: Denies Raynaud's, rash, nail changes, photosensitivity, TABLEAU ANALYST: Denies headaches, weakness, paresthesias, recurrent falls MSK: as per HPI All other systems reviewed and are unremarkable except noted above Physical Exam Vital Signs: Last Vital Signs Pulse 96 11/27/24 11:38 BP 160/94 H 11/27/24 11:38 Pulse Ox 98 11/27/24 11:38 Oxygen Delivery Method Room Air 11/27/24 11:38 BMI result Body Mass Index 28.7 Vital signs reviewed Physical Examination CONSTITUITIONAL Patient alert and cooperative. Well appearing and in no apparent painful distress HEENT Conjunctiva and sclera clear. ?Pupils equal round and reactive to light. ?No lymphadenopathy. ? CHEST/RESPIRATORY SYSTEM Normal respiratory effort and able to speak in complete sentences. ?Clear to auscultation bilaterally. ?No crackles, rales, rhonchi, wheezes heard. CARDIAC SYSTEM Regular rate and rhythm. ?S1 and S2 heard no murmurs. ?Radial pulses intact bilaterally MSK Hands: ?Good breast buffer strength bilaterally. [place]-neck deformities. No synovitis Wrists: ?Full range of motion at the wrists without pain. ?No TTP Elbows: Full range of motion without pain. No tenderness, weakness, swelling, increased warmth or erythema. Shoulders: Full range of motion without pain. No tenderness, weakness, swelling, increased warmth or erythema. Internal rotation exacerbates pain on the right shoulder Knees: ?Full range of motion. ?No tenderness, swelling, increased warmth or erythema.?Crepitations Ankles: Full range of motion. ?No tenderness, swelling, increased warmth or erythema.? Feet: ?Negative squeeze test Tender points:?No tenderness to palpation of the bilateral trapezius, supraspinatus, greater trochanters, anterior costochondral junctions, bilateral gluteal areas, bilateral suboccipital muscle insertions SKIN Skin intact without rashes. Results Reviewed Results Reviewed: [facility] lab group results reviewed 11/20/2024 WBC 4.76 Hb 13.9 Hct 40.3 Plt 185 ESR 8 CRP 0.6 Cr 0.6 eGFR >60 AST 37 ALT 88 H Cholesterol 245 H TG 387 H LDL 120 T spot Negative Hep B Abs Non reactive Hep C Abs Non reactive Assessment & Plan Assessment & Plan (1) Rheumatoid arthritis: Comment: ++RF++CCP diagnosed in 2007 Failed H CQ, MTX, SSZ, leflunomide Humira was working well from 2015 to 2020, stopped due to lack of insurance Simponi Aria started 2021, partially effective - stopped 05/2024 Actemra infusions 07/2024. Increased dose 08/2024 due to limited response Code(s): M06.9 - Rheumatoid arthritis, unspecified Category: Medical Qualifiers: Rheumatoid arthritis location: multiple sites Rheumatoid factor presence: with rheumatoid factor Qualified Code(s): M05.79 - Rheumatoid arthritis with rheumatoid factor of multiple sites without organ or systems involvement Plan: #Seropositive RA Patient is a 68-year-old female with seropositive rheumatoid arthritis currently on Actemra infusion 8 milligrams/kilogram. Currently in remission with improved joint exam. Plan - Actemra 8mg/kg every 4 weeks - Medrol dose pack as rescue - RTC 4 months - Labs prior to visit: CBC, CMP, ESR, CRP, hepatitis panel, T spot, lipids (2) Shoulder pain, right: Code(s): M25.511 - Pain in right shoulder Qualifiers: Chronicity: unspecified Qualified Code(s): M25.511 - Pain in right shoulder Plan: #Shoulder pain - right Likely rotator cuff tendonitis Send to PT If not improvement patietn is to contact the office for a steroid injection (3) Encounter for monitoring tocilizumab therapy: Code(s): Z51.81 - Encounter for therapeutic drug level monitoring; Z79.620 - half-way (current) use of immunosuppressive biologic Category: Medical Plan: #Long-term Use of Tocilizumab Discussed the risks and benefits of tocilizumab with the management of this patient's rheumatic condition. ? Benefits include decreased pain, improved mortality, improved quality of life Risks include LFT abnormalities, elevated triglycerides, GI perforations Contraindicated in a patient with history of diverticulitis Monitoring: ?CBC, CMP, triglycerides Plan I spent 45 minutes reviewing the record and labs, taking a history, examining the patient, discussing the treatment plan and documenting in the medical record Orders: Orders PT Evaluation and Treatment Today M25.511 - Pain in right shoulder Complete Blood Count Auto Diff 4 Months - Rheumatoid arthritis with rheumatoid factor of multiple sites without organ or systems involvement Comprehensive Met. Panel 4 Months - Rheumatoid arthritis with rheumatoid factor of multiple sites without organ or systems involvement C Reactive Protein 4 Months - Rheumatoid arthritis with rheumatoid factor of multiple sites without organ or systems involvement Lipid Panel 4 Months . - Rheumatoid arthritis with rheumatoid factor of multiple sites without organ or systems involvement Hepatitis A,B,C Profile 4 Months - Rheumatoid arthritis with rheumatoid factor of multiple sites without organ or systems involvement Erythrocyte Sedimentation Rate 4 Months . - Rheumatoid arthritis with rheumatoid factor of multiple sites without organ or systems involvement T Spot TB 4 Months . - Rheumatoid arthritis with rheumatoid factor of multiple sites without organ or systems involvement Coding Level of Care Code Est Pt Level 4 (63580) Complex EM visit Add On G2211 Diagnoses Rheumatoid arthritis involving multiple sites with positive rheumatoid factor Rheumatoid arthritis location: multiple sites Rheumatoid factor presence: with rheumatoid factor Right shoulder pain, unspecified chronicity M25.511 Chronicity: unspecified Encounter for monitoring tocilizumab therapy Z51.81; Z79.620
[2024-11-27 11:38] VITALS: BP 160/94; PULSE 96; O2SAT 98; BMI 28.7
--- OUTSIDE RECORDS SUMMARY | 2024-11-27 13:11 | XMS_ITS | Data Portability ---
Author Organization [facility], [employer] Address [address] [place] [address] Assessment Encounter Date Assessment Date Assessment LastModified by Organization Details LastModified Time 01/15/2024 01/15/2024 Chief complaint New patient visit History of present illness - Patient has not seen a primary care provider in over five years - Patient has Rheumatoid Arthritis (RA), followed by Dr. Lamas - Patient receives infusions for RA every eight weeks - Patient has high blood pressure and high cholesterol - Patient experiences white coat syndrome and anxiety related to doctor's visits - Patient experiences Premature Ventricular Contractions (PVCs) spontaneously, not related to anxiety - Patient has a history of alcohol use, started in the 1970s, currently consumes three to four gin and tonics per day - Patient has attempted to reduce alcohol consumption in the past but found it difficult - Patient quit smoking in 1996, started in 1973 - Patient does not use any illicit or recreational drugs Past medical history - Rheumatoid Arthritis - Hypertension - High cholesterol Past surgical history Cataract surgery on the right eye Family history - No significant cancer in the family - No history of heart attack or stroke in the family - Hypertension and high cholesterol in the family - Parents lived to 95 and 97 - Brother diagnosed with diabetes at age 15 - Son diagnosed with diabetes after a traumatic skiing accident Social history - Patient lives alone - No pets - Works part-time - Will start collecting Social Security in July Current medications Infusions for RA every eight weeks Lab results Cholesterol was 215 a couple of years ago Assessment - Rheumatoid Arthritis - Hypertension - High cholesterol - Alcohol use - History of smoking - Premature Ventricular Contractions Plan - Patient to get labs done before next appointment - Discuss vulvar atrophy and possible use of topical estrogen at next appointment - Patient to bring list of home blood pressure readings to next appointment Appointments Next appointment in a month, or sooner if schedule allows. The following time was spent on todays E/M encounter, including preparing for the visit, reviewing results, seeing the patient, and documentation on the date of service of the encounter: 45 mins 10903 45-59 minutes Not available 01/18/2024 07:30:58 02/16/2024 02/16/2024 Assessment - High cholesterol - Premature ventricular contractions (PVCs) - Vulvar discomfort, possibly due to lack of estrogen and tissue changes post-menopause - Possible tailor's bunion and neuroma in foot Plan - Lifestyle changes recommended for cholesterol management - Holter monitor for a week to monitor PVCs - Consideration of exercise stress test - Consideration of starting low dose cholesterol medication - Referral to ore washer for foot issues - Topical estrogen for vulvar discomfort Prescription - Holter monitor for a week - Topical estrogen for vulvar discomfort (pending patient's decision on pharmacy) Appointments - Follow-up appointment to discuss other concerns, including chronic cough - Appointment with [facility] for Holter monitor placement - Possible appointment with ore washer (pending patient's decision on provider) The following time was spent on todays E/M encounter, including preparing for the visit, reviewing results, seeing the patient, and documentation on the date of service of the encounter: 50 mins [email or web address] Not available 02/18/2024 18:17:58 03/08/2024 03/08/2024 Appointments Follow-up appointment in three months after lung cancer screening and behavioral medical director visit During this encounter, 2 of the 3 elements of MDM addressed: (1)Number and Complexity of problems: 2 or more stable chronic illnesses (2)Amount/Complex ity of data (need 1 out of 3 categories): Category 3: Discussion of management or test interpretation (3)Moderate Risk of morbidity from additional diagnostic testing or treatment (one needed): [email or web address] Not available 03/08/2024 19:12:43 07/12/2024 07/12/2024 Assessment - Likely conjunctivitis, with consideration for treatment despite uncertainty about the specific type (allergic, bacterial, or viral). Plan - Prescribe erythromycin ointment for the treatment of conjunctivitis. The prescription will be sent to [facility]. - Recommend a follow-up next week to check on pupil reaction or alternatively, contact the eye doctor to inform them of the current condition. Possibly related to diagnosis of glaucoma - Advise to go to the emergency room if there is any vision loss, significant headaches, photophobia, foreign body sensation, or increased pain - If symptoms do not improve by next week, either contact the clinic for further evaluation or reach out to the eye doctor. Prescription - Erythromycin ointment, apply as directed Appointments - Follow-up appointment next week to check on pupil reaction, if not following up with eye doctor. [email or web address] Not available 07/12/2024 14:58:12 Plan of Treatment Reminders Order Date Submit Date Provider Last Modified By Organization Details Last Modified Time Details Appointments None recorded. Lab vitamin D, 25-hydroxy , total, serum 2023 024 [facility], [address] [place] [address], [address], 4 10:50:45 TSH, serum or plasma 2023 024 [facility], [address] [place] [address], [address], 4 10:50:45 BMP, serum or plasma 2023 024 [facility], [address] [place] [address], [address], 4 22:30:58 lipid panel, serum 2023 024 [facility], [address] [place] [address], [address], 4 10:50:44 HbA1c (hemoglobi n A1c), blood 2023 024 [facility], [address] [place] [address], [address], 4 22:30:[address] referral - Dr. Veliz requested [address] Cardiology Scheduling Dept, [address], [address], 4 10:03:16 hand surgeon referral - Harper Green [address] [facility], [address] [place] [address], [place], [address], 4 09:42:43 ore washer referral 2023 024 [email or web address] Not available 4 12:52:11 Procedures holter monitor placement (PROC) [address] [facility], [address] [place], [address], 4 11:39:37 Surgeries None recorded. Imaging LDCT, chest, for lung cancer screening [address] [facility], [address] [place] [address] , [address], [place], [address], 4 08:41:44 Medication Orders erythromyc in 5 mg/gram (0.5 %) eye ointment 2023 024 [id number], [address] [place] [address], [place], [place], [id number], 4 15:34:14 Patient TargetsNo targets recorded. Patient InstructionsNo instructions recorded. Reason for Referral Brim Raiser Referral for Tail or's bunion of left foot Referring Physician: [facility], Encounter Date: 02/16/2024 [employer] Technology Development Manager Referral for Pa lpitations Dr. Veliz requested Referring Physician: [facility], Encounter Date: 03/08/2024 Hand Surgeon Referral for Tr igger finger of right hand Harper Green Referring Physician: [facility], Encounter Date: 03/08/2024 Results Created Date Observation Date Name Description Value Unit Range Abnormal Flag Note LastModifiedBy Organization Detail LastModifiedTime Result Notes None recorded. Problems Name Problem SNOMED Code Status Onset Date Resolution Date Notes Provider Name and Address Organization Details Recorded Time Rheumatoid arthritis 13870919 Active [address]23 Dr[address] 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 Procedures Surgical History Date Name Laterality Status Provider Name and Address Organization Details Recorded Time Cataract Surgery completed AURELIA SMITH PA-C [address] [facility], [address], [place], [address], [place] [facility] 01/18/2024 07:24:49 Imaging Results None recorded. Procedure Notes None recorded. Medical Equipment None Reported. Allergies Allergen ID Allergen Name Allergen Category Reaction Reaction Severity Criticality Documentation Date Start Date Code Code System Note Provider Name and Address Organization Details Recorded Time 5706 Product containin g penicilli n (product) medicatio n Not available Not available Not available 01/11/2024 83782 0251 SNOMED Paula Akers null, [place] [facility] 4 14:15:05 Medications Name Sig Start Date Stop Date Status Note LastModified by Organization Details LastModified Time prednisone 5 mg tablet PLEASE SEE ATTACHED FOR DETAILED DIRECTION S 02/15 completed Not Available Not Available Not Available triamcinolo ne acetonide 0.1 % topical cream APPLY TOPICALLY TWICE A DAY. 01/14 completed Not Available Not Available Not Available prednisolon e acetate 1 % eye drops,suspe nsion INSTILL 1 DROP INTO LEFT EYE FOUR TIMES DAY FOR 4 DAYS AFTER YOUR LASER PROCEDURE , THEN DISCONTIN UE 03/08 completed Not Available Not Available Not Available methotrexat e sodium 2.5 mg tablet TAKE 4 TABLETS BY MOUTH ONCE A WEEK 01/14 completed Not Available Not Available Not Available timolol maleate 0.25 % eye drops instill 1 drop into both eyes twice a day active Not Available Not Available No t Available methylpredn isolone 8 mg tablet TAKE 3 TABS DAILY FOR 5 DAYS, 2 TABS DAILY FOR 5 DAYS, 1 TAB DAILY FOR 5 DAYS THEN STOP active Not Available Not Available No t Available erythromyci n 5 mg/gram (0.5 %) eye ointment APPLY A 1 CM RIBBON INTO LOWER CONJUNCTI ANDRZEJ SAC(S) IN AFFECTED EYE(S) four times a day for 5 days active Not Available Not Available No t Available estradiol 0.01% (0.1 mg/gram) vaginal cream Apply 2 grams (2 x dime-size d amounts) to the vaginal introitus once daily x 2 weeks. After 2 weeks, may then apply 1 gram (a single dime-size d amount) to the introitus twice per week thereafte r. 03/08 completed Not Available Not Available Not Available ibuprofen prn active Not Available Not Tali ilable Not Available Vitamin D3 active Not Available Not Av ailable Not Available Premarin active Not Available Not Avai lable Not Available Multi Vitamin active Not Available Not Available Not Available Simponi ARIA 12.5 mg/mL intravenous solution INFUSE 2 MG/KG OVER 30 MINUTE(S) BY INTRAVENO US ROUTE EVERY 8 WEEKS active Not Available Not Available No t Available Vitals Date Recorded Body weight Body mass index (BMI) Body height Oxygen saturation Oxygen saturation in Arterial blood by Pulse oximetry Heart rate Systolic blood pressure Diastolic blood pressure Systolic blood pressure Diastolic blood pressure Provider Name and Address Organization Details Last Updated DateTime 4 73566.3 6 g 29.2 kg/m2 158.75 cm 98 % 98 % 82 /min 160 mm[Hg] 92 mm[Hg] 152 mm[Hg] 88 mm[Hg] Paula Akers [facility] 4 15:20:00 Date Recorded Body height Body mass index (BMI) Body weight Oxygen saturation Oxygen saturation in Arterial blood by Pulse oximetry Heart rate Systolic blood pressure Diastolic blood pressure Provider Name and Address Organization Details Last Updated DateTime 4 158.75 cm 29.5 kg/m2 07813.1 5 g 97 % 97 % 88 /min 140 mm[Hg] 96 mm[Hg] Narda graff [facility] 4 13:47:58 Date Recorded Body height Oxygen saturation Oxygen saturation in Arterial blood by Pulse oximetry Heart rate Systolic blood pressure Diastolic blood pressure Provider Name and Address Organization Details Last Updated DateTime 4 158.75 cm 98 % 98 % 84 /min 142 mm[Hg] 84 mm[Hg] Katia Raygoza RN [address] [facility] [address], [facility] [place], [address], [facility] 4 11:47:47 Date Recorded Systolic blood pressure Diastolic blood pressure Provider Name and Address Organization Details Last Updated DateTime 03/08/2024 140 mm[Hg] 82 mm[Hg] AURELIA SMITH PA-C [address] [facility] [address], [place], [address], [facility] 03/08/2024 19:04:07 Social History Question Answer Notes LastModified by Organization Details LastModified Time Tobacco Smoking Status Former Smoker Narda Morales null, [facility] 02/16/2024 13:46:57 What Is Your Level Of Alcohol Consumption? Heavy Daily Consumption Since Mid-20s. 3-4 Drinks/sitting, Including a Few Measured Ounces Of Rum. Denies Any Hospitalizations For Such, Withdrawal Seizures. [email or web address] Information not available 02/18/2024 When Did You Quit Smoking? 11-14year ssincelas tcigarett e 23- Pack Year History [email or web address] Information not available 03/08/2024 What Was The Date Of Your Most Recent Tobacco Screening? 4 Information not available 01/15/2024 Do You Use Any Illicit Or Recreational Drugs? No Information not available 01/15/2024 Sex: Unknown Functional Status None recorded. Mental Status None recorded. Family History Relationship Description Onset Age of this Age Resolved Age Notes LastModified by Organization Details LastModified Time Brother Type 1 diabetes mellitus [email or web address] Not available 2023 15:04:19 Son Type 1 diabetes mellitus [email or web address] Not available 2023 15:04:25 Medical History No medical history recorded. Gynecological HistoryNo gynecological history recorded. Obstetrics History GPAL:G 0 P 0 0 0 0 Immunizations Vaccine Type Date Status Note Provider Nam e and Address Organization Details Recorded Time Influenza, MDCK, quadrivalent, PF 3 completed AURELIA SMITH PA-C [address] [place] [address], [address], [place] [facility] 01/18/2024 07:31:19 COVID-19, mRNA, LNP-S, PF, 30 mcg/0.3 mL dose 1 completed AURELIA SMITH PA-C [address] [place] [address], , [place] [facility] 01/18/2024 07:31:19 COVID-19, mRNA, LNP-S, PF, 30 mcg/0.3 mL dose 1 completed AURELIA SMITH PA-C [address] [place] [address], , [place] [facility] 01/18/2024 07:31:19 COVID-19, mRNA, LNP-S, PF, 30 mcg/0.3 mL dose 2 completed AURELIA SMITH PA-C [address] [place] [address], , [place] [facility] 01/18/2024 07:31:19 COVID-19, mRNA, LNP-S, PF, 30 mcg/0.3 mL dose 1 completed AURELIA SMITH PA-C [address] [place] [address], [address], [place] [facility] 01/18/2024 07:31:19 COVID-19, mRNA, LNP-S, PF, 30 mcg/0.3 mL dose, citlaly-sucrose 2 completed AURELIA SMITH PA-C [address] [place] [address], [facility] [address], [place], [place], , [place] [facility] 01/18/2024 07:31:19 COVID-19, mRNA, LNP-S, bivalent, PF, 30 mcg/0.3 mL dose 2 completed AURELIA SMITH PA-C [address] [place] [address], [facility] [address], [place], [place], , [place] [facility] 01/18/2024 07:31:19 COVID-19, mRNA, LNP-S, PF, citlaly-sucrose, 30 mcg/0.3 mL 3 completed AURELIA SMITH PA-C [address] [place] [address], [place], , [place] [facility] 01/18/2024 07:31:19 influenza, unspecified formulation 6 completed AURELIA SMITH PA-C [address] [place] [address], , [place] [facility] 01/18/2024 07:31:19 influenza, unspecified formulation 8 completed AURELIA SMITH PA-C [address] [place] [address], , [place] [facility] 01/18/2024 07:31:19 Pneumococcal conjugate PCV 13 2 completed AURELIA SMITH PA-C [address] [place] [address], , [place] [facility] 01/18/2024 07:31:19 Influenza, split virus, quadrivalent, PF 1 completed AURELIA SMITH PA-C [address] [place] [address], , [place] [facility] 01/18/2024 07:31:20 Influenza, split virus, quadrivalent, PF 2 completed AURELIA SMITH PA-C [address] [place] [address], , [place] [facility] 01/18/2024 07:31:20 Past Encounters Encounter ID Performer Location Encounter Start Date Encounter Closed Date Diagnosis/Indication Diagnosis SNOMED-CT Code Diagnosis ICD10 Code Diagnosis Note [id number] AURELIA SMITH PA-C Main Office [address] [place] [address],[address] [place] [address] 01/15/2024 14:31:46 01/15/2024 15:22:40 Patient new to provider [id number] 03152 Z76.89 Patient new to practice, here to establish care. Has not been seen by this office or provider within the last 3 years. Screening for cardiovascular system disease 638241008 Z13.6 Diabetes m ellitus screening 692982835 Z13.1 Thyroid di sorder screening 639809616 Z13.29 Vitamin D deficiency 347 63003 E55.9 Hypertensive disorder 38 901067 I10 Uncontroll ed in office. Likely a component of white coat HTN. Will monitor closely. May request home monitoring as well. Rheumatoid arthritis 698 [address] Lamas. Managed on infusions Q8 weeks. CBC and LFTs monitored routinely. Previously on Humira Alcohol in take above recommended sensible limits 259511761 F10.120 Daily consumptio n since mid-20s. 3-4 drinks/sit ting, including a few measured ounces of rum. Denies any hospitaliz ations for such, withdrawal seizures. Has contemplat ed quitting. [id number] AURELIA SMITH PA-C Main Office [address] [place], [place] [address] [address] [place] [address] 02/16/2024 13:41:53 02/16/2024 14:22:02 Palpitations 28772093 R00.2 Self reported history of PVS's approximat patti every 1-2 days.Decli garrick EKG, stress test, echocardio gram, and cardiology referral.A greeable to kip patch, as below. 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 Documented 5 A? s approach.F rosy A? s ApproachAs sess: Reviewed ASCVD risk 22.7%.Advi ce: Initiate moderate-h igh intensity statin in conjunctio n with lifestyle modificait ons. Per AHA recommenda tions- reduced intakes of saturated fats and cholestero l, therapeuti c dietary options to enhance LDL lowering (fruits, vegetables , fiber), weight control, and increased physical activity (goal 150 mins/wk of moderate-v igorous aerobic activity)A gree: Pt verbalizes understand ing, although declines statin therapy.As sist: Verbal counseling provided. AHA recommenda tions reviewed.A rrange: Will repeat labs in 8 weeks Atrophic vaginitis 32657 000 N95.2 Will initiate management with estradiol cream. Pt prefers to avoid intravagin al route, and would rather administer topically to localized area. Will plan to treat with estradiol 0.01% (0.1 mg/gm) vaginal cream with the following instructio ns:Apply 2 grams (2 x dime-sized amounts) to the vaginal introitus once daily x 2 weeks.Afte r 2 weeks, may then apply 1 gram (a single dime-sized amount) to the introitus twice per week thereafter . Pt will let us know which pharmacy to send script to (see 02/18/24 case). Hypertensive disorder 38 835946 I10 Uncontroll ed in office. Likely a component of white coat HTN. Will monitor closely. May request home monitoring as well. Alcohol in take above recommended sensible limits 455986930 F10.120 Reviewed impact on cholestero l levels.Cou nseled on CDC recommenda tions regarding consumptio n of alcohol in women. [id number] AURELIA SMITH PA-C Main Office [address] [place] [address],[address] [place] [address] 03/08/2024 11:44:46 03/08/2024 12:13:28 Palpitations 10713459 R00.2 Self reported history of PVS's previously noted as every 1-2 hours; now occurring 1-2 times per day. She does report some fluctuatio n of frequency in occurrence over the years.Decl ketty EKG, stress test, echo cardiogram , and holter monitor.Ag reeable to cardiology referral. Tailor's b union of left foot [id number] 836473 M21.622 Previous podiatry referral updated based on patient preference s. Hyperlipidemia 59182771 E78.5 8 Minutes spent on counseling primary and/or secondary prevention of cardiovasc ular disease, including aspirin use if necessary, and healthy diet. Documented 5 A? s approach.F rosy A? s ApproachAs sess: Reviewed ASCVD risk 22.7%.Advi ce: Initiate moderate-h igh intensity statin in conjunctio n with lifestyle modificait ons. Per AHA recommenda tions- reduced intakes of saturated fats and cholestero l, therapeuti c dietary options to enhance LDL lowering (fruits, vegetables , fiber), weight control, and increased physical activity (goal 150 mins/wk of moderate-v igorous aerobic activity)A gree: Pt verbalizes understand ing, although declines statin therapy. Agrees to cardio referral.A ssist: Verbal counseling provided. AHA recommenda tions reviewed.A rrange: Will repeat labs in 8 weeks Atrophic vaginitis 67985 000 N95.2 Patient was unable to obtain script sent in d/t lack of insurance coverage.R eports that plans to use a bottle of premarin she obtained from an acquaintan ce who never used the script. Has not yet started.Ad vised to only use medication s as prescribed directly to her by a medical provider. Hypertensive disorder 38 268949 I10 Uncontroll ed in office. Likely a component of white coat HTN. Home log provided at last visit, numbers stable <130/80.- Continue to monitor blood pressure at home and bring readings to cardiologi st appointmen t Alcohol in take above recommended sensible limits 615265469 F10.120 Reviewed impact on cholestero l levels.Cou nseled on CDC recommenda tions regarding consumptio n of alcohol in women. Chronic cough 68339223 R 05.3 Started years ago after a URI. Described as loose. Occurs daily throughout day and night. Occasional ly productive with white phlegm. Considerin g history of smoking, will obtain LDCT and send a cardiology referral. May additional ly consider PFTs. Trigger fi nger of right hand [id number] 5600237 M65.30 index finger is locked in place. Uses night time at splint.Wor sening over last month.Sudheer potts home stretches. Rheumatoid arthritis 698 [address]06[address] Lamas. Managed on infusions Q8 weeks. CBC and LFTs monitored routinely. Previously on Humira Ex-smoker 0569939 Z87.89 1 23-pack year history. Agreeable to first LDCT. [id number] AURELIA SMITH PA-C Main Office [address] [facility],[address] [place] [address] 07/12/2024 14:27:34 07/12/2024 15:02:35 Conjunctivitis 8896508 H10.9 Health Concerns Section Related Observation LastModified by Organization Detai ls LastModified Time None Recorded Concern Status LastModified by Organization Details LastModified Time None Recorded Advance Directives Directive None Recorded Payers Encounter Date Sequence Insurance Name Policy Number Policy Goldman Covered Member ID Goldman Member ID Guarantor Name 01/15/2024 1 [place] [employer] Angela Messina [id number] Angela Messina 01/15/2024 2 [employer] OPTIONS (MEDICARE SUPPLEMENT) Angela Messina [id number] Angela Messina 02/16/2024 1 [place] [facility] G[place]MENT SERVICES Angela Messina [id number] Angela Messina 02/16/2024 2 [employer] OPTIONS (MEDICARE SUPPLEMENT) Angela Messina [id number] Angela Messina 03/08/2024 1 [place] [facility] G[employer]MENT SERVICES Angela Messina [id number] Angela Messina 03/08/2024 2 [employer] OPTIONS (MEDICARE SUPPLEMENT) Angela Messina [id number] Angela Messina 07/12/2024 1 [place] [facility] [employer] SERVICES Angela Messina [id number] Angela Messina 07/12/2024 2 [employer] (MEDICARE SUPPLEMENT) Angela Messina [id number] Angela Messina Notes Date Note Type Note Provider Name and Address Organization Details Recorded Time 4 text/html 68 y/o F presents for a new patient visit to establish care. Previously seen by [facility], not w/i last 5 years. Lives with a roommate. 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 AURELIA SMITH PA-C [address] [facility], [place], [address], [place] - [facility] 01/18/2024 07:32:03 4 text/html Chief complaint- Review of lab results- High cholesterol levels- Premature ventricular contractions (PVCs)- Vulvar discomfortHistory of present illness- High cholesterol levels for several years, currently at 229- LDL cholesterol elevated at 148- Experiences PVCs, not daily but every other or every third day- PVCs sometimes triggered by anxiety, sometimes occur without apparent trigger- PVCs can last all day or just a few beats- No chest pain during physical activity- Longstanding history of vulvar discomfort, skin splitting, feels like a thousand needles - No vaginal discharge, no problems with urination- Discomfort seems cyclic, worsens with prolonged sitting or lack of bathroom breaks- Redness and irritation when discomfort is severe- Possible tailor's bunion and neuroma in footPast medical history- Hypertension- History of smokingFamily historySon has diabetesSocial history- 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- History of smokingCurrent medicationsNo medication for cholesterolVitalsBlood pressure measurements at home, all normalLab results- Total cholesterol: 229- LDL cholesterol: 148- HDL cholesterol: 54- Triglycerides: Normal- Diabetes screen: Negative- Thyroid: Normal- Vitamin D: Normal AURELIA SMITH PA-C [address] [facility] [address], [place], [address], [facility] 02/18/2024 18:18:26 4 text/html Chief complaint - Frequent palpitations - Chronic cough - Trigger finger - Bunion History of present illness - Angela reports frequent palpitations, which have subsided recently, occurring once a day - Chronic cough started years ago after a respiratory problem, occurs all the time, every day, sometimes productive - Trigger finger has worsened over the past month, worse in the morning - Bunion likely to need surgery Past medical history - History of smoking for about 23 years, a pack per day - Slate Trimmer suggested changing medication due to high sed rate Past surgical history Previous cataract surgery in the eye, recent laser surgery resulted in corneal abrasion Family history Mother had low lung capacity, lived to [address] [place] [address] history Plans to go to [place] for a couple of months next year Vitals Blood pressure slightly elevated AURELIA SMITH PA-C [address] [facility], [facility] [address], [place], [address], [facility] [facility] 03/08/2024 19:13:07 4 text/html - Angela Messina, 68 years old- Noticed symptoms this morning, July 12, 2024- Dry eyes worsened after working all day and screen exposure yesterday- Used sodium chloride solution ointment, which usually helps- Woke up with eyes closed together, crusty, and watery- Eyelids swelling and redness noted, blepharitis more pronounced in the morning- Blurred vision, worsened but not acute, attributed to ointment use- No history of frequent blepharitis or pink eye- Always sensitive to light, no increase in sensitivity- No sensation of foreign body in eyes- Denies H/A, dizziness, loss of vision, or floaters - Concerned about symptoms worsening over the weekend- Patient treated for glaucoma and states I see my eye doctor all the time AURELIA SMITH PA-C [address] [facility], [facility] [address], [place], [address], [place] 07/12/2024 18:14:40 OBGyn Episode No OBEpisode recorded.
== END 2024-11-27 12:05 | disposition home or self-care (01) ==
LOC: HO.RHE 11:34
PROVIDERS: PCP Physician Assistant; Visit Provider Student in an Organized Health Care Education/Training Program
DX: M05.79 Rheumatoid arthritis with rheumatoid factor of multiple sites without organ or systems involvement (principal); M25.511 Pain in right shoulder; Z51.81 Encounter for therapeutic drug level monitoring; Z79.620 Long term (current) use of immunosuppressive biologic
CPT/HCPCS: 99214; G2211

== ENCOUNTER → 2024-11-27 11:33 | Outpatient (BNVA) | payer MEDICARE, SELFPAY | PROVIDERS: PCP Physician Assistant; Visit Provider Student in an Organized Health Care Education/Training Program | DX: M05.79 Rheumatoid arthritis with rheumatoid factor of multiple sites without organ or systems involvement (principal); M25.511 Pain in right shoulder; Z51.81 Encounter for therapeutic drug level monitoring; Z79.620 Long term (current) use of immunosuppressive biologic | CPT/HCPCS: 99212 ==

== ENCOUNTER 2025-06-13 09:44 | Outpatient (AMB) | payer MEDICARE, SELFPAY ==
--- NOTE | 2025-06-13 09:49 | A.OFFVIS_ITS ---
Vital Signs 06/13/25 09:54 Height 5 ft 3 in Weight 167 lb 1.766 oz BMI 29.6 BP 152/100 H Blood Pressure Location Lt brachial Position Sitting Pulse 89 Pulse Source Pulse Oximeter Pulse Oximetry (%) 98 Oxygen Delivery Method Room Air Intake Visit Reasons: RA Intake Note: Patient presents for RA follow up. Allergies Penicillins Allergy (Intermediate, Verified 06/13/25 09:53) Rash HPI Comments Details: Patient is a 69-year-old female with seropositive rheumatoid arthritis here today for follow up Interval History: Patient last seen 11/27/24 with me - On Actemra 8mg/kg every 4 weeks - Doing better on the increased dose - Currently complaining of right shoulder pain - Referred to PT Today - On Actemra 8mg/kg every 4 weeks - LFTs elevated and so her last Actemra was held for 2 weeks - Doing okay overall but notes bilateral wrist pain and swelling - No abdominal pain or fevers - No change in stool Rheumatologic History: 66-year-old female with past medical history of hypertension, dyslipidemia, depression who presents for evaluation of rheumatoid arthritis. She was diagnosed with seropositive RA (++RF ++CCP) by Dr. Morales in 2007. She has failed hydroxychloroquine, methotrexate, leflunomide, sulfasalazine. She was intermittently on steroids which seemed to work. She was on Humira since 2016 which worked very well however her insurance would not cover it so she was spacing out her injections to every 4 weeks instead of 2 weeks for about 1 year until she ran out. Patient saw assistant golf course superintendent Dr. West last year and was started on Simponi Aria Q 8 weeks about 6 months ago. She stated that Simponi Aria initially only works for 5-7 week. Her most recent infusion was June 29. She states however that this infusion seems to have worked well. She only has mild middle finger stiffness. Denies any swollen joints. She feels well today from an MSK stand point. Patient states she has had cough with chest congestion for a few years now. She occasionally has a productive cough with whitish phlegm. Denies any shortness of breath. She can walk on level ground for miles. She has 2 flights of stairs at home and she is able to do them with minimal shortness of breath. Denies any history of Raynaud's. No history of GERD Current Rheumatology Medication(s): Actemra 8mg/kg every 4 weeks IV [facility] Medical History (Updated 09/06/24 @ 11:01 by Eve Redmond MD) Encounter for monitoring tocilizumab therapy Adjustment disorder with mixed emotional features Obesity Rheumatoid arthritis Allergic rhinitis Benign essential hypertension Ocular hypertension Depression Mixed hyperlipidemia Surgical History Hx of cataract extraction Family History Mother Glaucoma Pacemaker Sister Sjogrens syndrome Father Prostate cancer Social History Household Members: None Alcohol intake: current Alcohol intake frequency: holidays/special occasions only Patient Tobacco Use Status: Former Tobacco user Current occupational status: employed 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 Review of Systems Narrative Review of Systems Constitutional: Denies fever, chills, weight loss ENT: Denies vision changes, eye pain or eye redness, dental caries, dry mouth GI: Denies nausea, vomiting, diarrhea, abdominal pain, change in BM Pulm: Denies SOB, LOPEZ, hemoptysis, wheezing Cards: Denies chest pain, palpitations Skin: Denies Raynaud's, rash, nail changes, photosensitivity, PRINT SHOP CHIEF CLERK: Denies headaches, weakness, paresthesias, recurrent falls MSK: as per HPI All other systems reviewed and are unremarkable except noted above Physical Exam Exam Exam: Vital signs reviewed Physical Examination CONSTITUITIONAL Patient alert and cooperative. Well appearing and in no apparent painful distress MSK Hands * Right Hand: Able to make a fist. No swelling or tenderness to palpation of the MCPs, PIPs or DIPs. * Left Hand: Able to make a fist. No swelling or tenderness to palpation of the MCPs, PIPs or DIPs. * Herbedens nodes noted bilaterally Wrists * Right Wrist: Full ROM to flexion and extension. No swelling or TTP * Left Wrist: Full ROM to flexion and extension. No swelling but TTP Elbows * Right Elbow: Full ROM. No swelling or TTP. No TTP of the medial epicondyle. No TTP of the lateral epicondyle * Left Elbow: Full ROM. No swelling or TTP. No TTP of the medial epicondyle. No TTP of the lateral epicondyle Shoulders * Right shoulder: Full ROM. No swelling noted. No TTP of the AC joint. No TTP of the subacromial bursa. No TTP of the posterior shoulder * Left shoulder: Full ROM. No swelling noted. No TTP of the AC joint. No TTP of the subacromial bursa. No TTP of the posterior shoulder Knees * Right knee: Good ROM. No swelling noted. TTP of the knee joint line. No TTP of pes anserine bursa * Left knee: Good ROM. No swelling noted. No TTP of the knee joint line. No TTP of pes anserine bursa. * Crepitations felt bilaterally Ankles * Right ankle: Good ankle dorsiflexion and plantar flexion. No swelling. No TTP of the ankle joint * Left ankle: Good ankle dorsiflexion and plantar flexion. No swelling. No TTP of the ankle joint Feet * Right foot: Negative squeeze test * Left foot: Negative squeeze test Tender points? * No tenderness to palpation of the bilateral trapezius, supraspinatus, anterior costochondral junctions, bilateral suboccipital muscle insertions SKIN No rashes Vital Signs: Last Vital Signs Pulse 89 06/13/25 09:54 BP 152/100 H 06/13/25 09:54 Pulse Ox 98 06/13/25 09:54 Oxygen Delivery Method Room Air 06/13/25 09:54 BMI result Body Mass Index 29.6 Results Reviewed Results Reviewed: [facility] lab group results reviewed 11/20/2024 G 06/03/25 [facility] WBC 4.76 5.79 Hb 13.9 13.6 Hct 40.3 39.3 Plt 185 160 ESR 8 6 CRP 0.6 0.6 Cr 0.6 0.7 eGFR >60 >60 AST 37 97 ALT 88 H 199 Cholesterol 245 H 261 H TG 387 H 209 H LDL 120 157 T spot Negative Hep B Abs Non reactive Hep C Abs Non reactive Assessment & Plan Assessment & Plan (1) Rheumatoid arthritis: Comment: ++RF++CCP diagnosed in 2007 Failed H CQ, MTX, SSZ, leflunomide Humira was working well from 2015 to 2020, stopped due to lack of insurance Simponi Aria started 2021, partially effective - stopped 05/2024 Actemra infusions 07/2024. Increased dose 08/2024 due to limited response Code(s): M06.9 - Rheumatoid arthritis, unspecified Category: Medical Qualifiers: Rheumatoid arthritis location: multiple sites Rheumatoid factor presence: with rheumatoid factor Qualified Code(s): M05.79 - Rheumatoid arthritis with rheumatoid factor of multiple sites without organ or systems involvement Plan: #Seropositive RA Patient is a 69-year-old female with seropositive rheumatoid arthritis currently on Actemra infusion 8 milligrams/kilogram. Currently in remission with improved joint exam. LFTs siginificantly elevated in the setting of Actemra use will need to decrease the frequency to every 6 weeks Plan - Actemra 8mg/kg every 6 weeks - Labs in 1 week AST/ALT - RTC 4 months - Labs prior to visit: CBC, CMP, ESR, CRP (2) Screening for osteoporosis: Code(s): Z13.820 - Encounter for screening for osteoporosis Plan: #Screening for osteoporosis Patient due for bone density and is currently refusing Risks explained and patient understood (3) Shoulder pain, right: Code(s): M25.511 - Pain in right shoulder Qualifiers: Chronicity: chronic Qualified Code(s): M25.511 - Pain in right shoulder; G89.29 - Other chronic pain Plan: #Shoulder pain - right Improved (4) Encounter for monitoring tocilizumab therapy: Code(s): Z51.81 - Encounter for therapeutic drug level monitoring; Z79.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 ? Benefits include decreased pain, improved mortality, improved quality of life Risks include LFT abnormalities, elevated triglycerides, GI perforations Contraindicated in a patient with history of diverticulitis Monitoring: ?CBC, CMP, triglycerides Plan I spent 40 minutes reviewing the record and labs, taking a history, examining the patient, discussing the treatment plan, explaining the risks of refusal of bone density and answering questions, placing new infusion orders and documenting in the medical record Orders: Orders XR DEXA axial skeleton Today M81.0 - Age-related osteoporosis without current pathological fracture Coding Level of Care Code Est Pt Level 5 (55689) Complex EM visit Add On G2211 Diagnoses Rheumatoid arthritis involving multiple sites with positive rheumatoid factor M05.79 Rheumatoid arthritis location: multiple sites Rheumatoid factor presence: with rheumatoid factor Screening for osteoporosis Z13.820 Chronic right shoulder pain M25.511; G89.29 Chronicity: chronic Encounter for monitoring tocilizumab therapy Z51.81; Z79.620
[2025-06-13 09:54] VITALS: BP 152/100; PULSE 89; O2SAT 98; BMI 29.6
--- OUTSIDE RECORDS SUMMARY | 2025-06-13 10:56 | XMS_ITS | Encounter Summary ---
Author Organization [facility] Address [address] [place] [id number] Phone Care Team Providers Care Getter Filler Name Role Phone Adri Harrison NP Primary Care Provider [phone] Encounter Details Date Type Department Care Team (Late st Contact Info) Description 02/16/2021 Transcribe Orders [facility] [address] [place] [address] Adri Harrison NP [address] [place] [address] Social History Tobacco Use Types Packs/Day Years Used Date Smoking Tobacco: Never Assessed Comments Unknown Sex and Gender Information Value Date Recorded Sex Assigned at Not on file Legal Sex Female 10:42 AM EDT Gender Identity Not on file Sexual Orientation Not on file documented as of this encounter Plan of Treatment Not on file documented as of this encounter Visit Diagnoses Not on filedocumented in this encounter Additional Health Concerns Infection Onset Date Last Indicated Resolved Time CoV-Risk 08/11/2021 08/11/2021 08/21/2021 1:23 AM EST documented as of this encounter Care Teams Getter Filler Relationship Specialty Start Date End Date Adri Harrison NP [address] [place] [address] PCP - General 02/04/21 documented as of this encounter Additional Source Comments The information contained in this document represents components of the legal health record. It is not the complete legal health record.[facility]
--- OUTSIDE RECORDS SUMMARY | 2025-06-13 10:56 | XMS_ITS | Clinical Summary ---
Author Organization [facility] Address [address] [place] [address] Phone Care Team Providers Care Shrimp Cleaner Name Role Phone Adri Harrison NP Primary Care Provider [phone] Allergies Active Allergy Reactions Criticality Noted Date Comments Penicillin Rash Low 02/10/2022 Medications golimumab (SIMPONI ARIA) 12.5 mg/mL Soln Inject into the vein. Every 8 weeks Active Immunizations Immunization Administration Dates Next Due COVID-19 (Pre-05/22) Pfizer Vaccine, mRNA, PF 11/24/2021,05/05/2021,05/05/2021,2020,08/22/2020,08/01/2020,08/01/2020 Influenza Quadrivalent Prese rvative Free IM 05/05/2022,04/29/2021 Social History Tobacco Use Types Packs/Day Years Used Date Smoking Tobacco: Former Smokeless Tobacco: Never Alcohol Use Standard Drinks/Week Comments Yes 0 (1 standard drink = 0.6 oz pur e alcohol) Education Answer Date Recorded Are you interested in more education? Not on evens e 11/26/2022 Are you concerned about learning? Not on file 11/26/2022 No 11/26/2022 No 11/26/2022 Digital Access Answer Date Recorded No 12/27/2022 No 12/27/2022 Reliable internet access at home? Not on file 12/27/2022 Device with a working camera? Not on file Comments Unknown Sex and Gender Information Value Date Recorded Sex Assigned at Not on file Legal Sex Female 10:42 AM EDT Gender Identity Not on file Sexual Orientation Not on file Last Filed Vital Signs Vital Sign Reading Time Taken Comments Blood Pressure - - Pulse - - Temperature - - Respiratory Rate - - Oxygen Saturation - - Inhaled Oxygen Concentration - - Weight 70.3 kg (155 lb) 02/10/2022 9:47 AM EDT Height 160 cm (5' 3 ) 02/10/2022 9:47 AM EDT Body Mass Index 27.46 02/10/2022 9:47 AM EDT Plan of Treatment Health Maintenance Due Date Last Done Comments Adult Td,Tdap Booster 1954 LIPID PANEL 1954 DEPRESSION SCREENING 1966 SMOKING Hx and SMOKELESS TOBACCO SCREENING 11/12/1967 HEPATITIS C SCREENING 1972 ZOSTER VACCINES (1 of 2) 1973 MAMMOGRAM 1994 COLOGUARD 11/12/1999 COLONOSCOPY 11/12/1999 COLORECTAL CANCER SCREENING 11/12/1999 FIT TEST 11/12/1999 FOBT 11/12/1999 SIGMOIDOSCOPY 11/12/1999 VIRTUAL COLONOSCOPY 11/12/1999 RSV VACCINE (1 - Risk 50-74 years 1-dose series) 2004 OSTEOPOROSIS SCREENING INITIAL (ONE-TIME) 11/12/2019 PNEUMOCOCCAL VACCINES (50+ years) (2 of 2 - PPSV23, PCV20, or PCV21) 10/15/2021 08/20/2021 INFLUENZA VACCINE (#1) 2025 , 05/05/2022, 04/29/2021, Additional history exists COVID-19 VACCINE ( season) 2025 04/25/2023, 04/27/2022, 04/27/2022, Additional history exists HEPATITIS A VACCINES Aged Out No long er eligible based on patient's age to complete this topic HIB VACCINES Aged Out No longer eligi ble based on patient's age to complete this topic IPV VACCINES Aged Out No longer eligi ble based on patient's age to complete this topic MENINGOCOCCAL VACCINES (ACWY) Aged Out No longer eligible based on patient's age to complete this topic MENINGOCOCCAL VACCINES (B) Aged Out N o longer eligible based on patient's age to complete this topic Medical Devices Not on file Insurance MEDICARE PART A & B [id number] [place] [address] MEDICARE SUPPLEMENT MEDICARE PART A & B [facility] MEDICARE SUPPLEMENT MEDICARE PART A & B MEDICARE SUPPLEMENT MEDICARE PART A & B MEDICARE SUPPLEMENT MEDICARE PART A & B Member Subscriber Plan / Payer (Ef fective 2019-Present) Name:Angela Messina Member ID:[id number] Relation to Subscriber:Self Name:MessinaAngela sapp Subscriber ID:[id number] Payer ID:[id number] Group ID:Not on file Type:Medicare Address: [facility] [employer] [facility] [place] [phone] [facility] MEDICARE SUPPLEMENT MEDICARE PART A & B [facility] MEDICARE SUPPLEMENT MEDICARE PART A & B Member Subscriber Plan / Payer (Ef fective 2019-Present) Name:Angela Messina Member ID:[id number] Relation to Subscriber:Self Name:Angela Messina Subscriber ID:[id number] Payer ID:[id number] Group ID:Not on file Type:Medicare Address: [employer] [address] [place] [phone] [facility] MEDICARE SUPPLEMENT MEDICARE PART A & B MEDICARE SUPPLEMENT MEDICARE PART A & B [facility] MEDICARE SUPPLEMENT Care Teams Shrimp Cleaner Relationship Specialty Start Date End Date Adri Harrison NP [address] [place] [id number] PCP - General 02/04/21 Additional Source Comments The information contained in this document represents components of the legal health record. It is not the complete legal health record.[facility]
== END 2025-06-13 10:29 | disposition home or self-care (01) ==
LOC: HO.RHES 09:45
PROVIDERS: PCP Physician Assistant; Visit Provider Student in an Organized Health Care Education/Training Program
DX: M05.79 Rheumatoid arthritis with rheumatoid factor of multiple sites without organ or systems involvement (principal); Z13.820 Encounter for screening for osteoporosis; M25.511 Pain in right shoulder; G89.29 Other chronic pain; Z51.81 Encounter for therapeutic drug level monitoring; Z79.620 Long term (current) use of immunosuppressive biologic
CPT/HCPCS: 99215; G2211

== ENCOUNTER → 2025-06-13 09:44 | Outpatient (BNVA) | payer MEDICARE, SELFPAY | PROVIDERS: PCP Physician Assistant; Visit Provider Student in an Organized Health Care Education/Training Program | DX: M25.511 Pain in right shoulder (principal); M05.842 Other rheumatoid arthritis with rheumatoid factor of left hand; M05.841 Other rheumatoid arthritis with rheumatoid factor of right hand; M05.832 Other rheumatoid arthritis with rheumatoid factor of left wrist; M05.79 Rheumatoid arthritis with rheumatoid factor of multiple sites without organ or systems involvement; Z13.820 Encounter for screening for osteoporosis; Z51.81 Encounter for therapeutic drug level monitoring; Z79.620 Long term (current) use of immunosuppressive biologic; E78.5 Hyperlipidemia, unspecified; Z87.891 Personal history of nicotine dependence | CPT/HCPCS: 99212 ==